=== PATIENT | male | born 1990 | race Caucasian/White ===

== ENCOUNTER 2020-04-18 13:37 | Emergency (ER) | payer OTHER ==
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
--- NOTE | 2020-04-18 14:43 | XRAY ---
Indication: Pain following injury. Comparison: None 3 view right ankle demonstrates mild soft tissue swelling. Tiny medial malleolus tip heterotopic ossification other developmental versus old injury. No other bony, articular, or soft tissue abnormalities.
--- NOTE | 2020-04-18 14:45 | XRAY ---
Indication: Pain following injury. Comparison: None 3 nonweightbearing views right foot demonstrates small cuboid accessory ossicle. No other bony, articular, or soft tissue abnormalities.
[2020-04-18] MEDS ORDERED: TORAdol 30 mg Injection IM ONE (15:02)
[2020-04-18] MEDS ORDERED: TORAdol 30 mg Injection ONE (15:04)
[2020-04-18 15:28] VITALS: BP 132/86; PULSE 61
[2020-04-18 18:11] VITALS: O2SAT 96
== END 2020-04-18 15:26 | disposition home or self-care (01) ==
LOC: ED 13:37
DX: S93.401A Sprain of unspecified ligament of right ankle, initial encounter (principal); S90.31XA Contusion of right foot, initial encounter; X50.1XXA Overexertion from prolonged static or awkward postures, initial encounter; Y93.01 Activity, walking, marching and hiking; Y92.89 Other specified places as the place of occurrence of the external cause; M79.89 Other specified soft tissue disorders
CPT/HCPCS: 73610; 73630; 96372; 99284; J1885